=== PATIENT | male | born 1980 | race Caucasian/White ===

== ENCOUNTER 2024-09-19 19:58 | Emergency (ER) | payer SELFPAY ==
[~2024-09-19] VITALS: Ht 167.6 cm; Wt 77.0 kg
[2024-09-19 20:00] VITALS: BP 108/71; PULSE 106; RESP 16; TEMP 98.2; O2SAT 99
== END 2024-09-19 22:28 | disposition left against medical advice (07) ==
LOC: ER 19:58
DX: R42 Dizziness and giddiness (principal); Z53.21 Procedure and treatment not carried out due to patient leaving prior to being seen by health care provider